=== PATIENT | male | born 1990 | race Caucasian/White ===

== ENCOUNTER 2018-12-06 21:18 | Emergency (ER) | payer OTHER ==
--- NOTE | 2018-12-06 22:53 | EDM.PDOC ---
ED HPI GENERAL MEDICAL PROBLEM - General Chief Complaint: Back Pain or Injury Stated Complaint: SEVERE BACK PAIN Time Seen by Provider: 12/06/18 22:20 Source of Information: Reports: Patient History Limitations: Reports: No Limitations - History of Present Illness INITIAL COMMENTS - FREE TEXT/NARRATIVE: this man said he was moving a rabago-sized mattress earlier today. He denied any kind of trauma but said afterwards he started having mid and low back pain. This pain has progressed throughout the day and is severe now. He said his on both sides beginning kind of in the lower thoracic area and going all the way down to the level of the pelvis. He denies any leg weakness and there is no problem with the bladder or bowels. low back Pain Score (Numeric/FACES): 2 - Related Data Allergies Allergy/AdvReac Type Severity Reaction Status Date / Time acetaminophen [From Percocet] Allergy Hives Verified 12/06/18 22:15 oxycodone [From Percocet] Allergy Hives Verified 12/06/18 22:15 Home Meds: Home Meds Aspirin [Ecotrin EC] 81 mg PO DAILY 12/06/18 [History] Social & Family History - Tobacco Use Smoking Status *Q: Never Smoker - Caffeine Use Caffeine Use: Reports: Energy Drinks, Soda - Recreational Drug Use Recreational Drug Use: No ED ROS GENERAL - Review of Systems Review Of Systems: ROS reveals no pertinent complaints other than HPI. ED EXAM,LOWER BACK PAIN/INJURY - Physical Exam Exam: See Below Exam Limited By: No Limitations General Appearance: Alert, WD/WN, Moderate Distress (this man looks like he seemed quite a bit of pain) Back Exam: Muscle Spasm (there is palpable muscle spasm to the paraspinous muscles bilaterally from roughly the T12 area down to the level of the sacrum. There is no midline tenderness area and leg strength is normal. DTRs not checked in this man since he was sitting in a low chair area) Neurological: No Motor/Sensory Deficits Course - Vital Signs Last Recorded V/S: Last Vital Signs Temp 36.0 C 12/06/18 22:18 Pulse 81 12/06/18 22:18 Resp 16 12/06/18 22:18 BP 148/101 H 12/06/18 22:18 Pulse Ox 95 12/06/18 22:18 Departure - Departure Time of Disposition: 22:50 Disposition: Home, Self-Care 01 Condition: Fair Clinical Impression: Back muscle spasm - Discharge Information Referrals: PCP,None [Primary Care Provider] - Additional Instructions: for muscle spasms take Flexeril or cyclobenzaprine 10 mg 3 times per day. For pain use Narco 5/325, hydrocodone with acetaminophen, #20 tablets, one or 2 every 4-6 hours. Both of these medications cause sedation and can impair driving or operating machinery. Hydrocodone can cause addiction after prolonged use. If you suddenly developed weakness in your legs or problems with your bladder or bowel such as the inability to urinate or incontinence of stool that is an emergency and you should be seen in the ER immediately. If you are not better within a few days then follow-up with your doctor. Return to the ER at any time if worse
== END 2018-12-06 23:00 | disposition home or self-care (01) ==
LOC: JP.ED 21:18
DX: M62.830 Muscle spasm of back (principal); Z88.6 Allergy status to analgesic agent; Z79.82 Long term (current) use of aspirin
CPT/HCPCS: 99283